=== PATIENT | male | born 1995 | race Caucasian/White ===

== ENCOUNTER 2020-02-15 01:58 | Inpatient (IN) | payer BC, OTHER ==
[2020-02-15] VITALS (14 sets, daily range): BP systolic 99–141; BP diastolic 52–69
[2020-02-15] MEDS ORDERED: LORazepam 2 MG/ML VIAL IM STA (02:03)
[2020-02-15] MEDS ORDERED: ISOVUE-370 76% 100ML VIAL As Ordered ONE (02:11)
[2020-02-15 02:15] LABS: BASO % 0.2 % (0.0-1.0); HEMOGLOBIN 16.5 g/dl (13.5-17.5); LYMPH # 1.2 10^3/uL (1.5-5.0); LYMPH % 6.8 % (24.0-44.0); MEAN CORPUSCULAR HEMOGLOBIN 29.2 pg (27.0-33.0); MEAN CORPUSCULAR HGB CONC 33.7 g/dl (32.0-36.5); MEAN CORPUSCULAR VOLUME 86.6 fl (80.0-96.0); MONO # 0.9 10^3/uL (0.0-0.8); MONO % 5.4 % (0.0-5.0); NEUTROPHILS # 14.8 10^3/uL (1.5-8.5); NEUTROPHILS % 87.1 % (36.0-66.0); PLATELET COUNT, AUTOMATED 267 10^3/uL (150-450); RED BLOOD COUNT 5.66 10^6/uL (4.30-6.10); WHITE BLOOD COUNT 16.9 10^3/uL (4.0-10.0)
[2020-02-15] MEDS ORDERED: HALOPERIDOL 5MG/ML VIAL (J1630 PER 1) As Ordered ONE (02:23)
[2020-02-15] MEDS ORDERED: diphenhydrAMINE 50MG/ML VIAL (J1200) As Ordered ONE (02:24)
[2020-02-15] MEDS ORDERED: HALOPERIDOL 5MG/ML VIAL (J1630 PER 1) IM ONE (02:30)
[2020-02-15] MEDS ORDERED: LORazepam 2 MG/ML VIAL IM ONE (02:30)
[2020-02-15] MEDS ORDERED: diphenhydrAMINE 50MG/ML VIAL (J1200) IM ONE (02:30)
[2020-02-15] MEDS ORDERED: LORazepam 2 MG/ML VIAL IV STA (02:49)
[2020-02-15 02:53] LABS: ACETAMINOPHEN LEVEL < 2.0 UG/ML (10.0-30.0); ALBUMIN 4.5 GM/DL (3.2-5.2); ALT/SGPT 117 U/L (12-78); BILIRUBIN,DIRECT 0.2 MG/DL (0.0-0.2); BILIRUBIN,TOTAL 0.7 MG/DL (0.2-1.0); BLOOD UREA NITROGEN 14 MG/DL (7-18); CALCIUM LEVEL 9.7 MG/DL (8.5-10.1); CARBON DIOXIDE LEVEL 25 MEQ/L (21-32); CHLORIDE LEVEL 106 MEQ/L (98-107); CPK CREATINE PHOSPHOKINASE 504 U/L (39-308); CREATININE FOR GFR 1.28 MG/DL (0.70-1.30); ETHYL ALCOHOL (ETHANOL) < 0.003 % (0.000-0.010); GLOMERULAR FILTRATION RATE > 60.0 (>60); GLUCOSE, FASTING 112 MG/DL (70-100); POTASSIUM SERUM 3.8 MEQ/L (3.5-5.1); SALICYLATE LEVEL < 1.7 MG/DL (5.0-30.0); SODIUM LEVEL 139 MEQ/L (136-145); TOTAL PROTEIN 8.3 GM/DL (6.4-8.2)
[2020-02-15 02:59] LABS: OSMOLALITY SERUM 293 MOSM/KG (275-295)
[2020-02-15 03:17] LABS: AMPHETAMINES LEVEL URINE NEGATIVE (NEGATIVE); BARBITURATES URINE NEGATIVE (NEGATIVE); BENZODIAZEPINES URINE NEGATIVE (NEGATIVE); CANNABINOIDS URINE POSITIVE (NEGATIVE); COCAINE METABOLITE URINE NEGATIVE (NEGATIVE); METHADONE URINE NEGATIVE (NEGATIVE); OPIATES URINE NEGATIVE (NEGATIVE); PHENCYCLIDINE URINE NEGATIVE (NEGATIVE)
[2020-02-15] MEDS ORDERED: ETOMIDATE INJ 20MG/10ML VIAL IV ONE (04:15)
[2020-02-15] MEDS ORDERED: ROCURONIUM BROMIDE 50 MG/5 ML VIAL IV ONE (04:15)
[2020-02-15] MEDS ORDERED: PROPOFOL 1,000 MG/100 ML VIAL As Ordered ONE ×3 (04:26→08:39)
[2020-02-15] MEDS ORDERED: NS 1,000 ML IV ONE (04:45)
--- NOTE | 2020-02-15 04:57 | REPVR ---
PROCEDURE INFORMATION: Exam: CT Head Without Contrast Exam date and time: 02/15/2020 2:03 AM Age: 24 years old Clinical indication: Injury or trauma; Fall; Concussion/head injury; Consciousness not specified; Additional info: Intoxication/trauma TECHNIQUE: Imaging protocol: Computed tomography of the head without contrast. Radiation optimization: All CT scans at this facility use at least one of these dose optimization techniques: automated exposure control; mA and/or kV adjustment per patient size (includes targeted exams where dose is matched to clinical indication); or iterative reconstruction. COMPARISON: No relevant prior studies available. FINDINGS: Brain: Brain parenchyma is symmetric. No evidence of intracranial hemorrhage or mass effect. There is preservation of the boothe-white matter differentiation. Cerebral ventricles: Unremarkable. No ventriculomegaly. Bones/joints: Unremarkable. No acute fracture. Paranasal sinuses: Visualized sinuses are unremarkable. No fluid levels. Mastoid air cells: Visualized mastoid air cells are well aerated. Soft tissues: Mild extracranial soft tissue swelling posteriorly on the right. IMPRESSION: No acute intracranial abnormality. Electronically signed by: Mehrdad Escobedo On 02/15/2020 04:57:01 AM
--- NOTE | 2020-02-15 05:04 | REPVR ---
PROCEDURE INFORMATION: Exam: XR Chest, 1 View Exam date and time: 02/15/2020 4:31 AM Age: 24 years old Clinical indication: Device placement; Ett placement (vent status); Additional info: Post intubation tube placement TECHNIQUE: Imaging protocol: XR of the chest Views: 1 view. COMPARISON: No relevant prior studies available. FINDINGS: Tubes, catheters and devices: Endotracheal tube in satisfactory position, 5.5 cm above the bri. Lungs: Unremarkable. No consolidation. Pleural space: No significant pleural effusions. No pneumothorax. Heart/Mediastinum: Unremarkable. No cardiomegaly. Bones/joints: Unremarkable. IMPRESSION: Endotracheal tube in satisfactory position. Electronically signed by: Mehrdad Escobedo On 02/15/2020 05:04:11 AM
[2020-02-15] MEDS ORDERED: propofoL 200 MG/20 ML VIAL IV ONE ×2 (05:15→05:30)
--- NOTE | 2020-02-15 05:35 | REPVR ---
PROCEDURE INFORMATION: Exam: CT Head Without Contrast Exam date and time: 02/15/2020 4:37 AM Age: 24 years old Clinical indication: Injury or trauma; Fall; Concussion/head injury; Consciousness not specified; Patient HX: Repeat head CT TECHNIQUE: Imaging protocol: Computed tomography of the head without contrast. Radiation optimization: All CT scans at this facility use at least one of these dose optimization techniques: automated exposure control; mA and/or kV adjustment per patient size (includes targeted exams where dose is matched to clinical indication); or iterative reconstruction. COMPARISON: CT Head without contrast 02/15/2020 3:52 AM FINDINGS: Brain: Brain parenchyma is symmetric. No evidence of intracranial hemorrhage or mass effect. There is preservation of the boothe-white matter differentiation. Cerebral ventricles: Unremarkable. No ventriculomegaly. Bones/joints: Unremarkable. No acute fracture. Paranasal sinuses: Visualized sinuses are unremarkable. No fluid levels. Mastoid air cells: Visualized mastoid air cells are well aerated. Soft tissues: Mild extracranial soft tissue swelling posteriorly on the right. IMPRESSION: No acute intracranial abnormality. Electronically signed by: Mehrdad Escobedo On 02/15/2020 05:34:28 AM
[2020-02-15] MEDS ORDERED: propofoL 1,000 MG in IV 1 EA IV SCH ×2 (05:45→08:39)
--- NOTE | 2020-02-15 05:53 | REPVR ---
PROCEDURE INFORMATION: Exam: CT Cervical Spine Without Contrast Exam date and time: 02/15/2020 2:03 AM Age: 24 years old Clinical indication: Neck pain; Additional info: Intoxication/trauma TECHNIQUE: Imaging protocol: Computed tomography images of the cervical spine without contrast. Radiation optimization: All CT scans at this facility use at least one of these dose optimization techniques: automated exposure control; mA and/or kV adjustment per patient size (includes targeted exams where dose is matched to clinical indication); or iterative reconstruction. COMPARISON: No relevant prior studies available. FINDINGS: Bones/joints: Straightening of the normal cervical lordosis which may be positional or secondary to muscle spasm. Alignment is otherwise preserved. No fracture. Scanning was performed in 2 sets of images. On the 2nd set of images, the patient is intubated. Discs/Spinal canal/Neural foramina: No significant spinal canal stenosis. No significant neural foraminal narrowing. Soft tissues: Paraspinal soft tissues are unremarkable. No prevertebral swelling. Lungs: Lung apices are normal. IMPRESSION: 1. Positional changes versus muscle spasm. 2. No acute cervical spine fracture. Electronically signed by: Mehrdad Escobedo On 02/15/2020 05:53:10 AM
--- NOTE | 2020-02-15 06:12 | REPVR ---
PROCEDURE INFORMATION: Exam: CT Chest With Contrast; Diagnostic Exam date and time: 02/15/2020 2:07 AM Age: 24 years old Clinical indication: Chest pain; Type not specified; Additional info: Trauma TECHNIQUE: Imaging protocol: Diagnostic computed tomography of the chest with intravenous contrast. Radiation optimization: All CT scans at this facility use at least one of these dose optimization techniques: automated exposure control; mA and/or kV adjustment per patient size (includes targeted exams where dose is matched to clinical indication); or iterative reconstruction. Contrast material: ISO; Contrast volume: 100 ml; Contrast route: INTRAVENOUS (IV); COMPARISON: CR PORTABLE CHEST X-RAY 02/15/2020 4:15 AM FINDINGS: Tubes, catheters and devices: Endotracheal tube in satisfactory position. Lungs: Dependent atelectasis, most pronounced within the lower lobes. Pleural space: No pleural effusions, hemothorax or pneumothorax. Heart: Cardiac size is normal. No pericardial effusion. Mediastinal space: No mediastinal hematoma. Aorta: Thoracic aorta is normal in caliber. No aneurysm, dissection or rupture. Lymph nodes: No adenopathy. Bones/joints: Mild thoracic scoliosis and degenerative endplate changes. No fracture. Soft tissues: Soft tissue contusion within the posterior subcutaneous fat on the left. Upper abdomen: See concurrent CT abdomen/pelvis, reported separately. IMPRESSION: 1. Endotracheal tube in satisfactory position. 2. Dependent atelectasis, most pronounced within the lower lobes. 3. Mild soft tissue contusion within the posterior subcutaneous fat on the left. Electronically signed by: Mehrdad Escobedo On 02/15/2020 06:12:05 AM
[2020-02-15] MEDS ORDERED: MIDAZOLAM INJ 2MG/2ML VIAL (J2250 PER 1MG) IV ONE ×2 (06:15→07:45)
--- NOTE | 2020-02-15 06:37 | REPVR ---
PROCEDURE INFORMATION: Exam: CT Abdomen And Pelvis With Contrast Exam date and time: 02/15/2020 2:07 AM Age: 24 years old Clinical indication: Abdominal pain; Generalized; Additional info: Trauma TECHNIQUE: Imaging protocol: Computed tomography of the abdomen and pelvis with intravenous contrast. Radiation optimization: All CT scans at this facility use at least one of these dose optimization techniques: automated exposure control; mA and/or kV adjustment per patient size (includes targeted exams where dose is matched to clinical indication); or iterative reconstruction. Contrast material: ISO; Contrast volume: 100 ml; Contrast route: INTRAVENOUS (IV); COMPARISON: No relevant prior studies available. FINDINGS: Lungs: Dependent bilateral lower lobe atelectasis. Liver: Diffuse fatty infiltration of the liver. Gallbladder and bile ducts: No calcified gallstones. No ductal dilatation. Pancreas: Unremarkable. No ductal dilatation. Spleen: Unremarkable. No splenomegaly. Adrenal glands: Unremarkable. Kidneys and ureters: Unremarkable. Symmetric nephrograms. No hydronephrosis. Stomach and bowel: Unremarkable. No obstruction. No mucosal thickening. Appendix: Normal appendix. Intraperitoneal space: No free fluid. No free air. Vasculature: Unremarkable. No abdominal aortic aneurysm. Lymph nodes: No adenopathy. Urinary bladder: Unremarkable as visualized. Reproductive: Unremarkable as visualized. Bones/joints: Mild thoracolumbar scoliosis and degenerative endplate changes. No acute fracture. No dislocation. Soft tissues: Soft tissue contusion along the lateral aspect of the pelvis on the left. IMPRESSION: 1. Soft tissue contusion along the lateral aspect of the pelvis on the left. 2. Dependent bilateral lower lobe atelectasis. 3. No posttraumatic visceral organ injury, free fluid or free air. 4. Hepatic steatosis. Electronically signed by: Mehrdad Escobedo On 02/15/2020 06:36:53 AM
--- NOTE | 2020-02-15 06:49 | REPVR ---
PROCEDURE INFORMATION: Exam: CT Maxillofacial Without Contrast Exam date and time: 02/15/2020 4:37 AM Age: 24 years old Clinical indication: Face pain; Additional info: Trauma TECHNIQUE: Imaging protocol: Computed tomography images of the face without contrast. Radiation optimization: All CT scans at this facility use at least one of these dose optimization techniques: automated exposure control; mA and/or kV adjustment per patient size (includes targeted exams where dose is matched to clinical indication); or iterative reconstruction. COMPARISON: No relevant prior studies available. FINDINGS: Tubes, catheters and devices: Endotracheal tube in place. Orbital cavity: Globes and orbits are symmetric. No retrobulbar hematoma. Bones/joints: Facial bones are intact. No acute fracture. Paranasal sinuses: Sinuses are well aerated. No fluid levels to suggest hemorrhage. Mastoid air cells: Mastoid air cells are well aerated and clear. Soft tissues: Facial soft tissue contusion in the left perimandibular region. IMPRESSION: 1. Facial soft tissue contusion in the left perimandibular region. 2. No acute facial bone fracture. Electronically signed by: Mehrdad Escobedo On 02/15/2020 06:48:51 AM
[2020-02-15] MEDS ORDERED: NS 1,000 ML IV SCH (08:00)
[2020-02-15] MEDS: ALBUTEROL SULFATE 2.5 MG/0.5 ML INH NEB SOLN NEB SCH ×3 (08:00→19:32)
[2020-02-15] MEDS: NS 1,000 ML IV SCH ×2 (08:39→17:49)
[2020-02-15] MEDS: propofoL 1,000 MG in IV 1 EA IV SCH ×11 (09:37→23:11)
[2020-02-15] MEDS: MIDAZOLAM INJ 2MG/2ML VIAL (J2250 PER 1MG) IV PRN (09:40)
[2020-02-15 10:19] LABS: ABG BASE EXCESS -1.1 (-2.0-2.0); ABG HCO3 23.9 MEQ/L (22.0-26.0); ABG O2 SATURATION 99.6 % (95.0-99.0); ABG PARTIAL PRESSURE O2 222.4 mmHg (75.0-100.0); ABG STANDARD HCO3 23.6 MEQ/L (22.0-26.0); ABG TOTAL CO2 25.1 MEQ/L (22.0-29.0); ABG pH (ARTERIAL) 7.383 UNITS (7.350-7.450)
[2020-02-15] MEDS: PANTOPRAZOLE 40MG VIAL (C9113 PER 1) IV SCH (11:09)
[2020-02-15] MEDS: CHLORHEXIDINE GLUCONATE 0.12 % 15ML UDC (PERIDEX ORAL RINSE) MT SCH ×2 (11:10→21:03)
[2020-02-15] MEDS: HEPARIN SOD (PORCINE) 5000UNITS/ML 1ML VIAL/SYRINGE SC SCH ×2 (13:04→21:03)
[2020-02-16] VITALS (11 sets, daily range): BP systolic 99–140; BP diastolic 54–93
[2020-02-16] MEDS: propofoL 1,000 MG in IV 1 EA IV SCH ×7 (00:42→09:10)
[2020-02-16] MEDS: ALBUTEROL SULFATE 2.5 MG/0.5 ML INH NEB SOLN NEB SCH ×2 (01:33→07:08)
[2020-02-16] MEDS: MIDAZOLAM INJ 2MG/2ML VIAL (J2250 PER 1MG) IV PRN ×2 (03:09→04:37)
[2020-02-16] MEDS: NS 1,000 ML IV SCH ×2 (04:11→14:05)
[2020-02-16 04:40] LABS: BASO % 0.3 % (0.0-1.0); EOS % 0.2 % (0.0-3.0); HEMOGLOBIN 14.9 g/dl (13.5-17.5); LYMPH # 1.5 10^3/uL (1.5-5.0); LYMPH % 15.7 % (24.0-44.0); MEAN CORPUSCULAR HEMOGLOBIN 31.5 pg (27.0-33.0); MEAN CORPUSCULAR HGB CONC 34.7 g/dl (32.0-36.5); MEAN CORPUSCULAR VOLUME 90.9 fl (80.0-96.0); MONO # 1.3 10^3/uL (0.0-0.8); MONO % 13.6 % (0.0-5.0); NEUTROPHILS # 6.6 10^3/uL (1.5-8.5); NEUTROPHILS % 69.8 % (36.0-66.0); PLATELET COUNT, AUTOMATED 176 10^3/uL (150-450); RED BLOOD COUNT 4.73 10^6/uL (4.30-6.10); WHITE BLOOD COUNT 9.4 10^3/uL (4.0-10.0)
[2020-02-16 05:23] LABS: ALBUMIN 3.5 GM/DL (3.2-5.2); ALT/SGPT 89 U/L (12-78); BILIRUBIN,TOTAL 1.1 MG/DL (0.2-1.0); BLOOD UREA NITROGEN 12 MG/DL (7-18); CALCIUM LEVEL 8.3 MG/DL (8.5-10.1); CARBON DIOXIDE LEVEL 28 MEQ/L (21-32); CHLORIDE LEVEL 109 MEQ/L (98-107); CHOLESTEROL LEVEL 174 MG/DL (< 200); CPK CREATINE PHOSPHOKINASE 5268 U/L (39-308); CREATININE FOR GFR 1.01 MG/DL (0.70-1.30); GLOMERULAR FILTRATION RATE > 60.0 (>60); GLUCOSE, FASTING 87 MG/DL (70-100); LDH LACTATE DEHYDROGENASE 477 U/L (87-241); PHOSPHORUS LEVEL 3.6 MG/DL (2.5-4.9); POTASSIUM SERUM 3.3 MEQ/L (3.5-5.1); SODIUM LEVEL 143 MEQ/L (136-145); TOTAL PROTEIN 6.3 GM/DL (6.4-8.2); TRIGLYCERIDES LEVEL 435 MG/DL (<150)
[2020-02-16] MEDS: HEPARIN SOD (PORCINE) 5000UNITS/ML 1ML VIAL/SYRINGE SC SCH (05:57)
[2020-02-16 05:58] LABS: ABG BASE EXCESS 0.5 (-2.0-2.0); ABG HCO3 24.9 MEQ/L (22.0-26.0); ABG PARTIAL PRESSURE CO2 39.8 mmHg (35.0-45.0); ABG PARTIAL PRESSURE O2 138.3 mmHg (75.0-100.0); ABG STANDARD HCO3 24.9 MEQ/L (22.0-26.0); ABG TOTAL CO2 26.2 MEQ/L (22.0-29.0); ABG pH (ARTERIAL) 7.415 UNITS (7.350-7.450)
[2020-02-16] MEDS: CHLORHEXIDINE GLUCONATE 0.12 % 15ML UDC (PERIDEX ORAL RINSE) MT SCH (08:28)
[2020-02-16] MEDS: PANTOPRAZOLE 40MG VIAL (C9113 PER 1) IV SCH (08:29)
--- NOTE | 2020-02-16 09:06 | REP ---
INDICATION: ETT . COMPARISON: 02/15/2020. TECHNIQUE: SINGLE PORTABLE AP VIEW OF THE CHEST WAS PERFORMED. FINDINGS: Endotracheal tube is noted with the tip approximately 5 cm above the bri. Nasogastric tube seen with side port in the stomach. The lungs, heart and mediastinum are unchanged. IMPRESSION: A tracheal tube tip 5 cm above the bri. Nasogastric tube side port in the stomach. <Electronically signed by Arnaldo Marie > 02/16/20 [id number]
--- NOTE | 2020-02-16 09:22 | ECGEPIP ---
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
--- NOTE | 2020-02-16 17:00 | IPNPDOC ---
Date Seen The patient was seen on 02/16/20. Progress Note SUBJECTIVE: Patient was extubated this morning. No complaints or shortness of breath. No sore throat. No fever or chills OBJECTIVE PHYSICAL EXAMINATION: VITAL SIGNS: Please see below. GENERAL: Awake, alert, oriented 3, answered questions appropriately. No respiratory distress HEENT: No JVD or thyromegaly. No JVD or thyromegaly CARDIOVASCULAR: S1, S2, sinus rhythm RESPIRATORY: Clear to auscultation. No wheezing or rales ABDOMINAL: Funes to gravity, positive bowel sounds, soft, nontender, nondistended, obese abdomen EXTREMITIES: No cyanosis, clubbing or pitting edema LABORATORY DATA, IMAGING STUDIES, MICROBIOLOGY: Please see below. ASSESSMENT: 24-year-old brought in by police emergently intubated and mechanical ventilated due to toxic ingestion Acute toxic encephalopathy, resolved Acute respiratory failure due to drug ingestion Drug ingestion Acute rhabdomyolysis Recreational drug use PLAN: Medically stable for medical surgical floor. DC Funes. Continue with IV fluids. Monitor patient's urine output and creatinine Advance diet to regular diet with plastic lepe. Psychiatrist consultation the morning. Once medically cleared, transferred inpatient medical unit if bed is available VS, I&O, 24H, [facility] Vital Signs/I&O Vital Signs Date Time Temp Pulse Resp B/P (MAP) Pulse Ox O2 Delivery O2 Flow Rate FiO2 02/16/20 14:16 99.3 90 17 140/93 (109) 99 Room Air 02/16/20 08:00 30 I&O- Last 24 Hours up to 6 AM 02/16/20 06:00 Intake Total 3564.4 ml Output Total 1650 ml Balance 1914.4 ml Laboratory Data 24H LABS Laboratory Tests 2 02/16/20 04:17: Immature Granulocyte % (Auto) 0.4, Neutrophils (%) (Auto) 69.8H, Lymphocytes (%) (Auto) 15.7L, Monocytes (%) (Auto) 13.6H, Eosinophils (%) (Auto) 0.2, Basophils (%) (Auto) 0.3, Neutrophils # (Auto) 6.6, Lymphocytes # (Auto) 1.5, Monocytes # (Auto) 1.3H, Eosinophils # (Auto) 0.0, Basophils # (Auto) 0.0, Nucleated Red Blood Cells % (auto) 0.0, Anion Gap 6L, Glomerular Filtration Rate > 60.0, Calcium Level 8.3L, Phosphorus Level 3.6, Total Bilirubin 1.1#H, Aspartate Amino Transf (AST/SGOT) 97H, Alanine Aminotransferase (ALT/SGPT) 89H, Alkaline Phosphatase 60, Lactate Dehydrogenase 477H, Total Creatine Kinase 5268#H, Total Protein 6.3#L, Albumin 3.5#, Albumin/Globulin Ratio 1.3, Triglycerides Level 435H, Cholesterol Level 174 02/16/20 05:48: Blood Gas Bicarbonate Standard 24.9, Arterial Blood pH 7.415, Arterial Blood Partial Pressure CO2 39.8, Arterial Blood Partial Pressure O2 138.3H, Arterial Blood Total CO2 26.2, Arterial Blood HCO3 24.9, Arterial Blood Base Excess 0.5, Arterial Blood Oxygen Saturation 99.0 CBC/BMP Laboratory Tests 02/16/20 04:17 JANINE HO MD Feb 16, 2020 17:00
[2020-02-16] MEDS ORDERED: POTASSIUM CHLORIDE 10 MEQ SR TABLET PO ONE (18:00)
[2020-02-17] MEDS: NS 1,000 ML IV SCH ×2 (00:36→10:40)
[2020-02-17 06:00] VITALS: BP 129/84
--- NOTE | 2020-02-17 10:34 | IPNPDOC ---
Date Seen The patient was seen on 02/17/20. Progress Note SUBJECTIVE: No issues overnight. Patient had been on IV fluids and currently medically stable for hospital discharge versus inpatient mental health unit admission awaiting psychiatric evaluation with Dr. Sherman. OBJECTIVE PHYSICAL EXAMINATION: VITAL SIGNS: Please see below. GENERAL: No distress. No cyanosis, no icterus HEENT: No JVD or thyromegaly. No JVD or thyromegaly CARDIOVASCULAR: S1, S2, sinus rhythm RESPIRATORY: Clear to auscultation. No wheezing or rales ABDOMINAL: Funes to gravity, positive bowel sounds, soft, nontender, nondistended, obese abdomen EXTREMITIES: No cyanosis, clubbing or pitting edema LABORATORY DATA, IMAGING STUDIES, MICROBIOLOGY: Please see below. ASSESSMENT: 24-year-old brought in by police emergently intubated and mechanical ventilated due to toxic ingestion Acute toxic encephalopathy, resolved Acute respiratory failure due to drug ingestion, resolved Drug ingestion Acute rhabdomyolysis, resolved Recreational drug use PLAN: Medically stable for discharge. Awaiting psychiatric evaluation to see if patient can be discharged home, or if he requires inpatient mental health unit admission VS, I&O, 24H, [facility] Vital Signs/I&O Vital Signs Date Time Temp Pulse Resp B/P (MAP) Pulse Ox O2 Delivery O2 Flow Rate FiO2 02/17/20 06:00 98.9 81 18 129/84 (99) 94 02/16/20 14:16 Room Air 02/16/20 08:00 30 I&O- Last 24 Hours up to 6 AM 02/17/20 06:00 Intake Total 4310 ml Output Total 2590 ml Balance 1720 ml JANINE HO MD Feb 17, 2020 10:34
[2020-02-17 14:00] VITALS: BP 151/91
--- NOTE | 2020-02-17 18:29 | DS.PDOC ---
Discharge Summary General Date of Admission Feb 15, 2020 at 08:39 Date of Discharge 02/17/20 Discharge Summary DISCHARGE DIAGNOSES: Acute toxic encephalopathy Acute respiratory failure due to drug intoxication marijuna use Acute rhabdomyolysis Recreational drug use [employer]ist, Dr. Sharp psychiatrist, Dr. Sherman DISCHARGE MEDICATIONS: SEE BELOW HOSPITAL COURSE; 24-year-old brought in by police emergently intubated and mechanical ventilated due to drug intoxication and admitted to ICU overnight successfully extubated. Patient had Funes catheter and NG tube placed for 24 hours, both of which were discontinued. IV fluids due to acute rhabdomyolysis were given. Patient was extubated on 02/16/2020 and transferred to medical surgical floor under hospitalist service. He was given regular diet with no signs of aspiration. Sitter was ordered until psychiatrist felt that the patient was not a danger to himself and was cleared for discharge home. Patient's total CK improved with IV hydration. He was instructed not to take any nonsteroidal anti-inflammatories and abstain from recreational drug use. He was cleared by Dr. Sherman for discharge home.. DISCHARGE PHYSICAL EXAMINATION: VITAL SIGNS: Please see below. GENERAL: No distress. No cyanosis, no icterus HEENT: No JVD or thyromegaly. No JVD or thyromegaly CARDIOVASCULAR: S1, S2, sinus rhythm RESPIRATORY: Clear to auscultation. No wheezing or rales ABDOMINAL: Funes to gravity, positive bowel sounds, soft, nontender, nondistended, obese abdomen EXTREMITIES: No cyanosis, clubbing or pitting edema LABORATORY DATA, IMAGING STUDIES, MICROBIOLOGY: Please see below. Time spent on discharge 30 minutes Vital Signs/I&Os Vital Signs Date Time Temp Pulse Resp B/P (MAP) Pulse Ox O2 Delivery O2 Flow Rate FiO2 02/17/20 14:00 98.3 73 18 151/91 (111) 96 02/16/20 14:16 Room Air 02/16/20 08:00 30 I&O- Last 24 Hours up to 6 AM 02/17/20 06:00 Intake Total 4310 ml Output Total 2590 ml Balance 1720 ml Discharge Medications No Active Prescriptions or Reported Meds Allergies Coded Allergies: No Known Allergies (Unverified , 02/15/20) JANINE HO MD Feb 17, 2020 18:25
--- NOTE | 2020-02-17 21:15 | CCN ---
CRITICAL CARE NOTE DATE: 02/16/2020 I was called to the emergency department to evaluate this 24-year-old male, intubated, mechanically ventilated, and sedated. History obtained from the emergency department providers was of drug ingestion at approximately 7 p.m. on February 13. Afterward, patient suffered a fall, striking his left buttock. He was brought to the emergency department by the state police, who found him running naked, combative with suicidal gestures. In the emergency department, he was combative, anxious, required multiple staff members to restrain him against violence to the staff and self-harm. An endotracheal tube was placed to prevent self-harm and secure his airway and allow needed diagnostic testing. There is no available past medical history on this patient. At bedside, his temperature is 98.5, pulse rate 75, respirations 16/16 delivered, blood pressure 122/61. HEENT: His pupils are midplane and respond to light. There is an endotracheal tube and orogastric tube in good position. His neck is mendez. There is no obvious jugular venous distention or carotid bruits. Heart sounds are regular without appreciable murmur. Breath sounds are coarse and diminished in the bases with some large airway sounds. Abdomen is soft and obese. Extremities: There is a contusion on his left buttock. Pulses are palpable times four. DIAGNOSTIC STUDIES REVIEW: Head CT scan showed no evidence of intracranial pathology. Maxillofacial CT scan was negative. Abdominal pelvic CT scan showed a contusion in his left pelvis. Chest CT scan showed atelectasis in the bases. Cervical spine scan showed no evidence of fracture. Chest x-ray shows the endotracheal tube to be in good position. Serology evaluation: His white cell count is 16.9. Differential shows 87% neutrophils. Hemoglobin 16.5, hematocrit 49, platelet count is 267,000. Sodium is 139, potassium 3.8, chloride 106, CO2 of 25, BUN 14, creatinine 1.2, glucose 112. Osmolarity 2.93. His lactic acid is 3.3. Calcium is 9.7 with an albumin of 4.5, bilirubin 0.7, AST 49, ALT 117. CPK was 504. Protein 8.3. Toxicology was positive for cannabinoids. An arterial blood gas showed a pH of 7.32, pCO2 of 46.8, pO2 of 143. Serology testing was negative for COVID virus. The primary problem requiring critical attention is acute respiratory failure. An endotracheal tube has been placed. His airway is not secure. We will initiate mechanical ventilation and recheck arterial blood gases. Overdose: The patient consumed some substance last evening. Cannabinoids were positive. It is unclear what was ingested. There is no specific toxidrome being demonstrated. We will provide supportive care and close monitoring. Suicidal ideation: At this point, the patient is unstable. When stability is achieved, we will involve psychiatry to investigate his suicidal gestures. Trauma: Based on imaging studies and physical exam, this appears to be trivial. I am concerned with the elevated creatine phosphokinase (CPK) and will continue monitoring. Deep venous thrombosis (DVT) prophylaxis will be addressed with subcutaneous heparin and sequential hose. Ulcer prophylaxis will be addressed with Protonix. Patient's condition is critical. His prognosis is guarded. I have reviewed the case with the emergency department providers and now with the intensive care unit (ICU) team. We will facilitate transfer to the intensive care unit as soon as possible. One our and 43 minutes was spent in the provision of bedside critical care and coordination, exclusive of any procedure time.
--- NOTE | 2020-02-18 09:04 | MHCR ---
[facility] CONSULTATION DATE OF CONSULTATION: 02/17/2020 HISTORY OF PRESENT ILLNESS: I was asked to see this patient who was admitted to the hospital. Apparently, a friend had called the police and told them that the patient had taken four hits of acid and made suicidal statements and then he jumped or fell off a deck into the [place]. The police found the patient walking naked in the road and he had to be intubated. The patient tells me now "I took some bad drugs that I shouldn't have taken." He says that he felt confused and he absolutely does not remember saying anything about wanting to hurt himself or falling off a deck. He says that he is very frightened about everything that happened and he keeps telling me "and I'm never going to do drugs again." He says that he does not have a problem with drugs, but it was his birthday and he and his roommate decided to "do something fun." The patient states that he has never had any psychiatric treatment, he has never made any suicidal attempts, and he has no complaints. He says that he has been on the phone all day with his parents and that he is very close to his parents and the parents are going to have him come and stay with them for at least a few days. MENTAL STATUS EXAMINATION: This patient is alert and oriented times three, pleasant and cooperative, verbally spontaneous. Eye contact is good. There is no formal thought disorder noted. Mood is good. Affect is appropriate to mood. He is not psychotic, suicidal, or homicidal. Concentration and memory is good. Insight and judgment good. PAST PSYCHIATRIC HISTORY: He has never had any prior psychiatric treatment either inpatient or outpatient. He has never made any suicidal attempt. FAMILY HISTORY: There is no psychiatric illness in the family or suicides. MEDICAL HISTORY: He denies any medical problems. ABUSE HISTORY: He denies any history of any physical or sexual abuse. SUBSTANCE ABUSE: He states that he has never had any trouble with abusing alcohol or drugs in the past. DIAGNOSIS: No diagnosis. Unknown substance intoxication.
--- NOTE | 2020-02-18 12:18 | CCN ---
CRITICAL CARE NOTE DATE: 02/17/2020 The patient is seen in the intensive care unit intubated, mechanically ventilated, sedate with propofol, critically ill. This is hospital day #2, endotracheal tube day #2. He is 24+ hours from his ingestion. His vital signs are temperature 97.6, pulse rate 79, respirations 16, blood pressure 107/58, saturation 93% on mechanical ventilation. Intake and output for the past 24 hours: 2964 in, 1305 out, since midnight 1400 in, 345 out. At bedside he is ill appearing. His oral mucosa is pink. There is a 7.5 endotracheal tube at 26 cm. Orogastric tube is in place, draining bilious secretions. Neck is supple. No meningismus. Heart sounds are regular without appreciable murmur. Breath sounds are clear bilaterally. No focal sounds are appreciated. Chest is symmetric and moves symmetrically. Abdomen is soft. Bowel sounds in the right lower quadrant. Extremities are cool. Pulses palpable. DIAGNOSTIC STUDIES: His sodium is 143, potassium 3.3, chloride 109, CO2 of 28, BUN is 12, creatinine 1.01, glucose 87, calcium 8.3. Albumin 1.3. His liver enzymes are AST 97, ALT 89. CPK is 5268. White cell count is 9.4, hemoglobin 14.9, hematocrit 43, platelet count 176,000. His differential white cell count shows 69.8% neutrophils. An arterial blood gas showed a pH 7.41, pCO2 of 39, pO2 of 138 on mechanical ventilatory support. On medications review, he is receiving subcutaneous heparin, propofol titrated for a Naima 3, Protonix 40 mg a day, Versed as needed, saline at 100 mL per hour, and nebulized albuterol. The primary problem requiring critical attention is acute respiratory failure. Arterial blood gases and chest x-rays are acceptable. We will proceed with weaning and so long as he meets criteria will proceed with extubation. Toxic drug overdose: It is unclear what the patient consumed. His vital signs, property assessment monitor, and lab studies are acceptable. Will continue with supportive care. Elevated CPK: This is likely related to a degree of rhabdomyolysis. His creatinine is actually better than it was 24 hours, but we will continue with hydration. I have discussed the case with Dr. Angulo, who has been kind enough to accept his care in transfer. We will anticipate extubation and continued supportive care with suicide precautions. One hour and 37 minutes was spent in the provision of bedside critical care and coordination excluding any procedure time. ELIN
== END 2020-02-17 15:41 | disposition home or self-care (01) | DRG 812 ==
LOC: M ED 01:58 → M ED INP 08:39 → ENRESERV 09:00 → M PCU 09:59 → M MSPAV 02-16 13:38
PROVIDERS: ADMIT Internal Medicine Pulmonary Disease; ATTEND General Practice
PROC: 5A1945Z Respiratory Ventilation, 24-96 Consecutive Hours (ICD-10-PCS; principal; 2020-02-15)
DX: T50.901A Poisoning by unspecified drugs, medicaments and biological substances, accidental (unintentional), initial encounter (principal); J96.00 Acute respiratory failure, unspecified whether with hypoxia or hypercapnia; G92 Toxic encephalopathy; M62.82 Rhabdomyolysis; R45.851 Suicidal ideations; F12.10 Cannabis abuse, uncomplicated